=== PATIENT | male | born 1985 | race Caucasian/White ===

== ENCOUNTER 2018-05-04 16:26 | Emergency (ER) | payer OTHER, SELFPAY ==
[2018-05-04 16:28] VITALS: BP 137/84; PULSE 86; RESP 14; TEMP 36.7; O2SAT 98; BMI 25.1
--- NOTE | 2018-05-04 17:56 | ED.HA ---
HPI - Headache <APRIL Cyr - Last Filed: 05/04/18 22:13> General Chief Complaint: Headache Stated Complaint: MIGRAINE LEFT EAR PAIN Time Seen by Provider: 05/04/18 17:56 Source: patient Mode of arrival: ambulatory Limitations: no limitations History of Present Illness HPI Narrative: 33-year-old healthy male that was a former smoker here for complaint of headache and rash with chills. He reports he has had a rash to his forehead and left side of the scalp over the past week. Pain is to the left side of the scalp area as well radiating into the left ear. He denies any trauma to the area. He states he has felt like he has had a fever however he did not check he has had chills. Positive p.o. intake. He does report having chickenpox as a child. No nausea or vomiting. He denies any other concerns or complaints at this time. He denies having a headache history. He states he has not had a headache like this in the past. He denies any stressors or relievers of his pain. MD Complaint: headache Related Data Home Medications Medication Instructions Recorded Confirmed albuterol sulfate 2 puff INHALATION QID PRN 05/04/18 05/04/18 Previous Rx's Medication Instructions Recorded hydrocodone-acetaminophen [[place]] 1 tab PO Q6H PRN #15 tab 05/04/18 Allergies Allergy/AdvReac Type Severity Reaction Status Date / Time No Known Allergies Allergy Uncoded 07/23/17 12:44 Review of Systems <APRIL Cyr - Last Filed: 05/04/18 22:13> Constitutional Reports chills, Denies fever(s), Denies lethargy and Denies weakness Eyes Denies change in vision, Denies eye discharge, Denies irritation and Denies loss of vision ENT Ears, Nose, Mouth, and Throat: Denies change in voice, Denies neck pain and Denies sore throat Cardiovascular Denies chest pain, Denies irregular heart rhythm, Denies lightheadedness, Denies palpitations, Denies dyspnea, Denies dyspnea on exertion and Denies orthopnea Respiratory Denies cough, Denies dyspnea, Denies dyspnea on exertion and Denies wheezing Genitourinary Denies hematuria, Denies flank pain, Denies urinary incontinence and Denies urinary urgency Musculoskeletal Denies neck pain Integumentary/Breasts Comments: Rash to left forehead and left scalp Neurologic Denies confusion, Denies loss of vision and Denies weakness Comments: Headache Psychiatric Denies anxiety, Denies confusion, Denies depression, Denies homicidal ideation and Denies suicidal ideation Endocrine Denies palpitations Hematologic/Lymphatic Denies easy bruising Allergic/Immunologic Denies wheezing Exam <APRIL Cyr - Last Filed: 05/04/18 22:13> Initial Vital Signs Initial Vital Signs: Vital Signs Temperature 98.1 F 05/04/18 16:28 Pulse Rate 86 05/04/18 16:28 Respiratory Rate 14 05/04/18 16:28 Blood Pressure 137/84 05/04/18 16:28 Pulse Oximetry 98 05/04/18 16:28 Const General: cooperative and well developed Nutritional Appearance: well nourished Orientation: alert, awake, oriented x3 and not confused HENMT Head: No Zuñiga's sign, No hematoma, No laceration, No raccoon eyes, scalp lesion and other (Fascicular/crusty rash to the left side of the forehead that does not cross midline into the left scalp. ) Ears: hearing grossly normal bilaterally and TM's normal bilaterally Mouth: oral mucosae normal and moist mucous membranes Throat: posterior oropharynx normal Eyes Other: Fluorescein exam was performed to left eye no fluorescein uptake is appreciated. No dendritic formations were seen on fluorescein exam. Resp Effort & Inspection: normal respiratory effort, able to speak in complete sentences, no respiratory distress and no use of accessory muscles Auscultation: clear to auscultation bilaterally, no rales, no rhonchi and no wheezes Cardio Rate: regular rate Rhythm: regular rhythm Heart Sounds: no click, no gallops, no murmurs and no rubs Pulses: normal peripheral pulses Skin General: no rashes or lesions noted, No jaundice and No petechiae Neuro General: alert, oriented x3, gait normal and no focal motor deficits Speech: speech normal <Maddy Ricketts DO - Last Filed: 05/05/18 03:00> Initial Vital Signs Initial Vital Signs: Vital Signs Temperature 98.1 F 05/04/18 16:28 Pulse Rate 86 05/04/18 16:28 Respiratory Rate 14 05/04/18 16:28 Blood Pressure 137/84 05/04/18 16:28 Pulse Oximetry 98 05/04/18 16:28 Course <APRIL Cyr - Last Filed: 05/04/18 22:13> Orders Ordered: ED Orders 05/04/18 18:34 CT head/brain wo con Stat 05/04/18 18:35 Influenza A and B by PCR Rapid Stat Vital Signs - 8 hr 05/04/18 20:52 Pulse Rate 69 Respiratory Rate 16 Blood Pressure [Right Arm] 132/78 Pulse Oximetry 99 <Maddy Ricketts DO - Last Filed: 05/05/18 03:00> Orders Ordered: ED Orders 05/04/18 18:34 CT head/brain wo con Stat 05/04/18 18:35 Influenza A and B by PCR Rapid Stat Vital Signs - 8 hr 05/04/18 20:52 Pulse Rate 69 Respiratory Rate 16 Blood Pressure [Right Arm] 132/78 Pulse Oximetry 99 MDM - Headache <APRIL Cyr - Last Filed: 05/04/18 22:13> Lab Data Lab Results 05/04/18 Range/Units 18:35 Influenza A & B (PCR) Negative (Negative) MDM Narrative Medical decision making narrative: CT of the head was obtained due to atypical headache and was negative for any acute findings. Signs and symptoms presents as shingles to the left forehead and scalp area most likely causing his headache symptoms. Due to symptoms being a for 1 week will not use antivirals at this point.. Eye exam was completed no dendritic lesions are seen on fluorescein exam. [id number] Tylenol or Motrin as needed for any discomfort. Plenty of fluids. Follow up with primary care provider next week for re-evaluation. Small amount of [place] is prescribed for breakthrough pain. For any worsening symptoms return to the emergency room. May dress open lesions with bacitracin to prevent secondary infection. For any worsening symptoms return emergency room. <DO Lila Pierre Last Filed: 05/05/18 03:00> Lab Data Lab Results 05/04/18 Range/Units 18:35 Influenza A & B (PCR) Negative (Negative) Discharge Plan Departure Patient Disposition: Home Clinical Impression: Shingles Discharge Date/Time: 05/04/18 20:59 Interventions: ED Discharge Assessment Last Done: 05/04/18 20:59 Instructions: DI for Shingles Activity Restrictions/Additional Instructions: CT of the head and influenza swabs were obtained and were negative. Signs and symptoms presents as a shingles causing the rash to the left forehead and headache symptoms. Use [id number] Tylenol or Motrin as needed for any discomfort. Dress open lesions to forehead and scalp with bacitracin to prevent secondary infection. Small amount of [place] is provided for breakthrough pain use as directed no driving while on the [place]. Follow up with primary care provider next week for re-evaluation. For any worsening symptoms return to the emergency room. Prescriptions: New hydrocodone-acetaminophen [[place]] 5-325 mg tablet 1 tab PO Q6H PRN (Reason: pain) Qty: 15 RF: 0 No Action albuterol sulfate 90 mcg/actuation Hfa Aerosol Inhaler 2 puff INHALATION QID PRN (Reason: Wheezing) RF: 0 Referrals: [facility] [Provider Group] <Maddy Ricketts DO - Last Filed: 05/05/18 03:00> Cosign ED Attending Brady Attestation: I was immediately available in the department for consultation. Documentation has been reviewed. I agree with assessment and plan.
--- NOTE | 2018-05-04 18:34 | DI.CT.S_ITS ---
PROCEDURE: CT HEAD/BRAIN WO CON INDICATIONS: Atypical headache TECHNIQUE: Noncontrast 4.5 mm thick angled axial sections acquired from the foramen magnum to the vertex, with coronal and sagittal reformats. For radiation dose reduction, the following was used: automated exposure control, adjustment of mA and/or kV according to patient size. COMPARISON: None. FINDINGS: Image quality: Excellent. CSF spaces: Basal cisterns are patent. No extra-axial fluid collections. Ventricles are normal in size and shape. Brain: No midline shift. No intracranial masses or hemorrhage. [place]-white matter interface is normal. Skull and face: Calvarium and visualized facial bones are intact, without suspicious lesions. Sinuses: Visualized sinuses and mastoids are clear. There is mild soft tissue prominence overlying the left anterior forehead with a few punctate densities near the skin surface. These may represent radiopaque foreign bodies if there is a history of trauma versus dermal soft tissue calcifications. IMPRESSION: CT of the acute intracranial abnormalities. Mild soft tissue prominence overlying the anterior left forehead with a few punctate densities near the skin surface. Finding may represent radiopaque foreign bodies if there is a history of trauma versus superficial soft tissue calcifications. Recommend correlation with clinical examination. Dictated by: Austin Ramirez M.D. on 05/04/2018 at 18:58 Approved by: Austin Ramirez M.D. on 05/04/2018 at 19:04
[2018-05-04 19:36] LABS: Influenza A and B by PCR Rapid Negative (Negative)
[2018-05-04 20:52] VITALS: BP 132/78; PULSE 69; RESP 16; O2SAT 99
== END 2018-05-04 20:59 | disposition home or self-care (01) ==
PROVIDERS: Emergency Provider Nurse Practitioner Family
DX: B02.9 Zoster without complications (principal)
CPT/HCPCS: 70450; 87400; 99282; 99284